=== PATIENT | male | born 2005 ===

== ENCOUNTER 2025-04-09 17:23 | Emergency (ER) | payer SELFPAY ==
[2025-04-09 18:07] VITALS: BP 133/88; PULSE 83; RESP 16; TEMP 36.9; O2SAT 100; BMI 16.2
== END 2025-04-09 21:05 | disposition left against medical advice (07) ==
PROVIDERS: Emergency Provider Emergency Medicine
DX: R51.9 Headache, unspecified (principal)
CPT/HCPCS: 99281